=== PATIENT | female | born 1985 | race Caucasian/White ===

== ENCOUNTER 2017-02-08 07:39 | Emergency (ER) | payer OTHER ==
[~2017-02-08] VITALS: Ht 149.9 cm; Wt 52.2 kg
[~2017-02-08 07:39] MED LIST: LEVO500T59 PO; PHEN-318 PO
[2017-02-08 07:40] VITALS: BP 121/80
--- NOTE | 2017-02-08 08:12 | RAD ---
Indication: Left fifth toe pain and injury. Time of exam 0801 hours. 3 views of the left fifth toe demonstrate a fracture at the base of the proximal phalanx. No significant displacement or angulation is seen. The distal phalanx is intact. The fifth metatarsal is intact. Impression: Fracture at the base of the proximal phalanx, fifth toe.
[2017-02-08] MEDS ORDERED: ACET325T9 PO (08:27)
--- NOTE | 2017-02-08 08:28 | PHYS DOC ---
Past History Past Medical History: Anxiety Past Surgical History: Cholecystectomy Alcohol Use: Occasionally Drug Use: Marijuana Adult General Chief Complaint Chief Complaint: TOE PROBLEM HPI HPI 31-year-old female presenting to the emergency department with left toe pain after having an emergency brake slip and catch her little toe. This happened last night. She has pain that is mild nonradiating intermittent and worse with walking. It is alleviated with rest and associated with swelling. Review of systems is negative for foot pain or heel for ankle pain proximally. She denies chest pain or shortness of breath. Pertinent physical exam shows mild swelling with no ecchymosis laceration or abrasion. Skin is intact over the toe. Neurovascularly intact. ED course: 31-year-old female who sustained a proximal fifth left foot phalanx fracture that is closed and neurovascularly intact. Dynamic splinting was placed on the patient. I recommended Tylenol and ibuprofen for pain control. She was subsequently discharged home to bear weight as tolerated to follow-up with her primary care physician. The patient was then discharged home in stable condition to follow up with their primary care physician over the next 2-3 days. They were to return if their symptoms worsened or if they were concerned for any reason. [id number] discharge instructions and return precautions were given. Patient's questions were answered to their satisfaction. Patient is comfortable plan. Review of Systems Review of Systems Constitutional: Denies fever or chills [] Eyes: Denies change in visual acuity, redness, or eye pain [] HENT: Denies nasal congestion or sore throat [] Respiratory: Denies cough or shortness of breath [] Cardiovascular: No additional information not addressed in HPI [] GI: Denies abdominal pain, nausea, vomiting, bloody stools or diarrhea [] : Denies dysuria or hematuria [] Musculoskeletal: Denies back pain or joint pain [] Integument: Denies rash or skin lesions [] Neurologic: Denies headache, focal weakness or sensory changes [] Endocrine: Denies polyuria or polydipsia [] Allergies Allergies Allergies Coded Allergies Type Severity Reaction Last Updated Verified No Known Drug Allergies 09/09/16 No Physical Exam Physical Exam Constitutional: Well developed, well nourished, no acute distress, non-toxic appearance. [] HENT: Normocephalic, atraumatic, bilateral external ears normal, oropharynx moist, no oral exudates, nose normal. [] Eyes: PERRLA, EOMI, conjunctiva normal, no discharge. [] Neck: Normal range of motion, no tenderness, supple, no stridor. [] Cardiovascular:Heart rate regular rhythm, no murmur [] Lungs & Thorax: Bilateral breath sounds clear to auscultation [] Abdomen: Bowel sounds normal, soft, no tenderness, no masses, no pulsatile masses. [] Skin: Warm, dry, no erythema, no rash. [] Back: No tenderness, no CVA tenderness. [] Extremities: No tenderness, no cyanosis, no clubbing, ROM intact, no edema. [] Neurologic: Alert and oriented X 3, normal motor function, normal sensory function, no focal deficits noted. [] Psychologic: Affect normal, judgement normal, mood normal. [] Current Patient Data Vital Signs Vital Signs Date Time Temp Pulse Resp B/P (MAP) Pulse Ox O2 Delivery O2 Flow Rate FiO2 02/08/17 07:40 97.6 89 16 99 EKG EKG [] Radiology/Procedures Radiology/Procedures [] Course & Med Decision Making Course & Med Decision Making Pertinent Labs and Imaging studies reviewed. (See chart for details) [] Dragon Disclaimer Dragon Disclaimer This chart was dictated in whole or in part using Voice Recognition software in a busy, high-work load, and often noisy Emergency Department environment. It may contain unintended and wholly unrecognized errors or omissions. Departure Departure: Impression: Primary Impression: Closed fracture of proximal phalanx of toe of left foot Disposition: HOME, SELF-CARE Condition: STABLE Referrals: AMADA GEIGER DO (PCP) Patient Instructions: Toe Fracture Additional Instructions: Thank you for allowing us to participate in your care today. Followup with your primary care physician in 3 days if your symptoms do not improve. If you do not have a primary care provider you can ask for a list of our primary care providers. Return to the emergency department you have any new or concerning findings. This should be evaluated by the primary care physician and any necessary consulting services for continued management within a few days after discharge. Return to emergency room if you have any new or concerning symptoms including but not limited to fever, chills, nausea, vomiting, intractable pain, any new rashes, chest pain, shortness of air, uncontrolled bleeding, difficulty breathing, and/or vision loss. You may have been prescribed medication that can change in your level of thinking and ability to operate machinery. These medications include hydrocodone and Ativan. Also, Benadryl has been known to do this as well. Be sure to check with your pharmacist and ask if the medications you've prescribed can affect your level of consciousness. I recommend not operating heavy machinery or driving while on medication such as these. Scripts Acetaminophen (TYLENOL) 325 Mg Tablet 1 TAB PO PRN Q4HRS, #10 TAB Prov: BUBBA CASTILLO MD 02/08/17 BUBBA CASTILLO MD Feb 08, 2017 08:27
== END 2017-02-08 08:36 | disposition home or self-care (01) ==
LOC: ER 07:39
DX: S92.512A Displaced fracture of proximal phalanx of left lesser toe(s), initial encounter for closed fracture (principal); F12.10 Cannabis abuse, uncomplicated; W22.8XXA Striking against or struck by other objects, initial encounter; Y93.89 Activity, other specified; Y99.8 Other external cause status; Y92.89 Other specified places as the place of occurrence of the external cause
CPT/HCPCS: 73660; 99284